=== PATIENT | male | born 1990 | race Caucasian/White ===

== ENCOUNTER 2023-09-15 15:24 | Emergency (ER) | payer BC, SELFPAY ==
[2023-09-15] VITALS (8 sets, daily range): BP systolic 118–159; BP diastolic 75–110
--- NOTE | 2023-09-15 15:53 | ED.GENMED ---
History of Present Illness
General
Chief Complaint: Musculo-Skeletal Complaint
Source: patient and family
Exam Limitations: none
Time Seen by Provider: 09/15/23 15:46
Travel History
Have you had any contact with someone who has COVID-19?: No
Do you have any symptoms of coronavirus? Fever > 100 degrees, chills, cough, shortness of breath, sore throat, loss of taste or smell, muscle aches, or headache?: No
History of Present Illness
History of Present Illness:
See MDM
Past History
Past History
ED Past Medical History: None
ED Past Surgical History: None
Social History
Tobacco: Non-smoker
Alcohol: None
Phy Exam
Physical Exam
Physical Exam:
See MDM
Course
Orders/Labs/Results
Orders:
Orders
09/15/23 15:47
HYDROmorphone [Dilaudid] 1 mg .ROUTE .STK-MED ONE
09/15/23 15:52
HYDROmorphone [Dilaudid] 1 mg IV NOW STA
Shoulder, Right, Trauma [CR Shoulder, Trauma - Right] Urgent
Comment:
Reason For Exam: fall, R shoulder injury
09/15/23 15:53
CT Head W/o Iv Contrast Urgent
Comment:
Reason For Exam: fall, head injury, seizure activity
09/15/23 16:05
HYDROmorphone [Dilaudid] 1 mg IV NOW STA
09/15/23 16:34
Complete Blood Count/With Diff Urgent
Comprehensive Metabolic Panel Urgent
09/15/23 16:49
Propofol [Diprivan] 20 ml .ROUTE .STK-MED
09/15/23 16:58
Propofol [Diprivan] 20 ml .ROUTE .STK-MED
09/15/23 17:11
Shoulder, Right 1 View [CR Shoulder - Right 1 View] Urgent
Comment:
Reason For Exam: post reduction
09/15/23 17:54
HYDROmorphone [Dilaudid] 1 mg IV NOW STA
Abnormal Lab Results
09/15/23
16:34
WBC 18.9 H 10^3/uL
(4.8-10.8)
Abs Immat Gran (auto) 0.1 H 10^3/uL
(0-0.05)
Absolute Neuts (auto) 16.9 H 10^3/uL
(1.4-6.5)
Absolute Lymphs (auto) 0.5 L 10^3/uL
(1.2-3.4)
Absolute Monos (auto) 1.3 H 10^3/uL
(0.1-0.6)
Immature Gran % 0.6 H %
(0-0.5)
Neutrophils % 89.5 H %
(42.2-75.2)
Lymphocytes % 2.6 L %
(20.5-51.1)
Creatinine 0.6 L mg/dL
(0.7-1.3)
Glucose 107 H mg/dl
(70-99)
Albumin 5.1 H g/dl
(3.5-5.0)
09/15/23 16:34
09/15/23 16:34
Vital Signs
Initial and Last Documented VS:
Initial Vital Signs
Temp Pulse Resp BP Pulse Ox
98.4 F 125 16 118/110 96
09/15/23 15:31 09/15/23 15:31 09/15/23 15:31 09/15/23 15:31 09/15/23 15:31
Last Documented Vital Signs
Temp Pulse Resp BP Pulse Ox
98.1 F 106 20 159/78 100
09/15/23 17:25 09/15/23 17:25 09/15/23 17:25 09/15/23 17:25 09/15/23 17:25
Procedures
Moderate Sedation
ASA Risk Score: Class II
Chart and allergies reviewed: Yes
Consent for anesthesia obtained: Yes
Time out completed (validating right patient & procedure): Yes
History of difficult intubation: No
Airway free of obstruction: Yes
Patient has a gag reflex: Yes
Patient is able to open mouth: Yes
Patient has no dentures: Yes
Patient has no loose teeth: Yes
Medication administered by Provider during Moderate Sedation: IV Propofol (mg)
Total dose administered: 400
Time drug administered: 16:55
Start Time: 16:55
Stop Time: 17:10
Joint/Fracture Reduction
Right Anterior Proximal Shoulder:
Indication for procedure:: Right anterior shoulder dislocation
Procedure completed by: Jose Galvez DO
Consent form signed: Yes
Joint reduced: with anesthesia sedation
Injury was: closed
Further treatement: needs further treatment
Post reduction exam: stable
Capillary Refill: normal
Peripheral Pulses: radial (right): 2+
MDM/Problems Addressed
Differential Diagnosis Includes:
HPI and MDM Narrative:
33-year-old male presenting for evaluation of right shoulder injury and possible seizure. Mother at bedside states they were talking on the phone and he stopped midsentence and she heard ruffling. She left him and his . She went to his house
immediately and patient was walking around and appeared confused. He has concern for right shoulder dislocation and head injury. Mother is concerned that patient had another seizure. He had a seizure 2 years ago believed to be related to
tramadol. All of his workup from [place] [facility] was negative and he has been seizure-free for 2 years. Patient denies biting his tongue or urinating on himself. It is not certain whether or not patient had another seizure or not
I was called to the patient's room for pain control. Patient has clinical evidence of right shoulder dislocation. Will give Dilaudid and obtain x-ray
Physical exam
General: Uncomfortable
HEENT: protecting airway. Abrasion to left forehead. No tongue bite noted
Neck: appears supple
CV: No evidence of cyanosis
Resp: No accessory muscle use
Abd: Non-distended
Extremities: Step-off to right shoulder. Distal extremity neurovascular intact
Neuro: alert. No focal deficits
Psych: Anxious
Skin: Intact
Problems Addressed including Acute and Chronic Conditions affecting care:
1. Seizure-like activity
Acuity: acute
Prognosis: stable
Details: This was unwitnessed. Will obtain CT head
2. Right shoulder dislocation
Acuity: acute
Prognosis: unstable
Details: Will give Dilaudid and obtain x-ray
Updates
X-ray confirms anterior shoulder dislocation. No fracture noted. After consent was obtained, the shoulder was reduced without complication. Patient did forewarned me that he requires multiple doses of propofol. Patient did require a total of 400
mg of propofol that was given 100 mg increments. Patient woke up only minutes later after he was sedated.
I had a long discussion with patient and mother. Since the episode was unwitnessed, I cannot 100% confirm this was a seizure. I discussed that he cannot drive a car until cleared by neurology. Patient and mother gave verbal understanding of this
Differential Diagnosis (but not limited to): Seizure, shoulder dislocation
Testing considered: UDS
Drug therapy (if applicable): OTC meds, please see d/c instruction regarding Rx drugs
Amount and/or Complexity of Data Reviewed
Clinical info obtained from: Patient
External data reviewed: N/A
Labs I independently reviewed (but not limited to): Leukocytosis, likely reactive
Radiology: X-ray independently reviewed: Anterior shoulder dislocation
Pulse Ox: not hypoxic
EKG independently reviewed: N/A
Force Dispatcher: Sinus rhythm
Critical Care: N/A
Risk of Complication:
Social Determinants of health: Good social support
Discussed with other providers: N/A
Escalation of Care includes Admit/Obs: After being observed in the Emergency Department, pt stable for discharge.
Occasional wrong word or 'sound a like' substitutions may have occurred due to the inherent limitations of voice recognition software. Read the chart carefully and recognize, using context, where substitutions have occurred.
*Critical Care Note
Total Time (30-74mins, 75-104mins- exclusive of procedures): Not Applicable
ED Attending Note
-
Portions of this chart may have been created with voice recognition software.� Occasional wrong word or��sound alike� substitutions may have occurred due to the inherent limitations of voice recognition software.
Discharge Plan
Departure
Patient Disposition: Home (Routine Discharge)
Date of Disposition: 09/15/23
Time of Disposition: 19:09
Patient with high blood pressure during this ER visit?: Yes
Discharge Problem:
Dislocation of right shoulder joint, Seizure-like activity
Instructions: Shoulder Dislocation (DC), BLOOD PRESSURE
Prescriptions:
New
oxycodone 5 mg tablet
5 mg PO Q8H PRN (Reason: Pain) Qty: 14 0RF
Referrals:
Luciano Guillen DO [Family Provider] -
Activity Restrictions/Additional Instructions:
As we discussed, the persistent pain is concerning for rotator cuff injury. Please call your orthopedist tomorrow morning. Please continue to use the shoulder immobilizer.
Again, as we discussed, do not drive until cleared by neurology. There is a possibility that this was a seizure. However, it was unwitnessed. Please discuss this with the neurologist to discuss whether or not to start seizure medicines and whether
or not you can drive.
Please return for any worsening symptoms.
You may return at any time if you have further concerns.
Interventions
Interventions:
*Risk Screen - Suicide Last Done: 09/15/23 15:31
*General Assessment Last Done: 09/15/23 15:31
*Neglect/Abuse Screening Last Done: 09/15/23 15:31
ED- Fall Risk Assessment Last Done: 09/15/23 17:33
*ED COVID-19 Vaccine History Last Done: 09/15/23 15:31
ED- Cardiac Assessment Last Done: 09/15/23 17:33
ED-Musculoskeletal Assessment Last Done: 09/15/23 17:40
ED- Neurological Assessment Last Done: 09/15/23 17:40
ED- Pulmonary Assessment Last Done: 09/15/23 17:40
Discharge Date and Time
Print Language: GEORGIAN
[2023-09-15] MEDS: DILAUDID 1 MG IV ×3 (15:55→17:58)
[2023-09-15 16:49] LABS: % Basophils 0.4 % (0-2); % Eosinophils 0.2 % (0-6); % Immature Granulocytes 0.6 % (0-0.5); % Lymphocytes 2.6 % (20.5-51.1); % Monocytes 6.7 % (1.7-9.3); % Neutrophils 89.5 % (42.2-75.2); Absolute Basophils 0.1 10^3/uL (0-0.2); Absolute Immature Granulocytes 0.1 10^3/uL (0-0.05); Absolute Lymphocytes 0.5 10^3/uL (1.2-3.4); Absolute Monocytes 1.3 10^3/uL (0.1-0.6); Absolute Neutrophils 16.9 10^3/uL (1.4-6.5); Hematocrit 40.2 % (39.0-52.0); Hemoglobin 14.8 g/dL (13.0-18.0); Mean Corp Hgb Conc. 36.8 g/dL (33.0-37.0); Mean Corpuscular Hgb 30.8 pg (27.0-31.0); Mean Corpuscular Volume 83.8 fL (80.0-94.0); Mean Platelet Volume 9.7 fL (7.4-10.4); Nucleated Red Blood Cells % 0 % (-); Platelet Count 374 10^3/uL (130-400); Red Cell Dist. Width 12.6 % (11.5-14.5); White Blood Cell Count 18.9 10^3/uL (4.8-10.8)
[2023-09-15 16:58] LABS: ALT (SGPT) 23 U/L (0-50); AST (SGOT) 26 U/L (17-59); Albumin 5.1 g/dl (3.5-5.0); Alkaline Phosphatase 88 U/L (38-126); Blood Urea Nitrogen 12 mg/dl (9-20); Calcium 9.9 mg/dl (8.4-10.2); Carbon Dioxide 23 mmol/L (22-30); Chloride 100 mmol/L (98-107); Glucose 107 mg/dl (70-99); Potassium 4.6 mmol/L (3.5-5.1); Sodium 135 mmol/L (135-145); Total Bilirubin 0.5 mg/dl (0.2-1.3); Total Protein 7.5 g/dl (6.3-8.2); eGFR > 60.00
[2023-09-15] MEDS: PERCOCET 5/325 1 TABLET PO (19:14)
== END 2023-09-15 19:46 | disposition home or self-care (01) ==
LOC: EMR 15:24
PROVIDERS: EMERGENCY PHYSICIAN Student in an Organized Health Care Education/Training Program; FAMILY PHYSICIAN Family Medicine
DX: S43.004A Unspecified dislocation of right shoulder joint, initial encounter (principal); S09.90XA Unspecified injury of head, initial encounter; R56.9 Unspecified convulsions; S00.81XA Abrasion of other part of head, initial encounter; W19.XXXA Unspecified fall, initial encounter; R03.0 Elevated blood-pressure reading, without diagnosis of hypertension
CPT/HCPCS: 99285; 23650; 96374; 99152; 96376; 70450; 73020; 73030; 80053; 85025

== ENCOUNTER 2024-03-05 18:48 | Inpatient (IN) | payer BC, SELFPAY ==
[2024-03-05 16:37] VITALS: BP 170/98
[2024-03-05 17:03] LABS: % Basophils 0.3 % (0-2); % Eosinophils 0.4 % (0-6); % Immature Granulocytes 0.3 % (0-0.5); % Lymphocytes 10.2 % (20.5-51.1); % Monocytes 9.7 % (1.7-9.3); % Neutrophils 79.1 % (42.2-75.2); Absolute Eosinophils 0.1 10^3/uL (0-0.7); Absolute Lymphocytes 1.2 10^3/uL (1.2-3.4); Absolute Monocytes 1.2 10^3/uL (0.1-0.6); Absolute Neutrophils 9.5 10^3/uL (1.4-6.5); Hemoglobin 14.9 g/dL (13.0-18.0); Mean Corp Hgb Conc. 36.3 g/dL (33.0-37.0); Mean Corpuscular Hgb 30.2 pg (27.0-31.0); Mean Platelet Volume 9.7 fL (7.4-10.4); Nucleated Red Blood Cells % 0 % (-); Platelet Count 331 10^3/uL (130-400); Red Blood Cell Count 4.94 10^6/uL (4.70-6.10); Red Cell Dist. Width 12.7 % (11.5-14.5)
[2024-03-05 17:12] VITALS: BP 142/74
[2024-03-05 17:22] LABS: ALT (SGPT) 49 U/L (0-50); AST (SGOT) 34 U/L (17-59); Albumin 5.2 g/dl (3.5-5.0); Alkaline Phosphatase 111 U/L (38-126); Blood Urea Nitrogen 22 mg/dl (9-20); Calcium 9.8 mg/dl (8.4-10.2); Carbon Dioxide 26 mmol/L (22-30); Chloride 99 mmol/L (98-107); Glucose 110 mg/dl (70-99); Potassium 4.5 mmol/L (3.5-5.1); Sodium 140 mmol/L (135-145); Total Bilirubin 0.5 mg/dl (0.2-1.3); Total Protein 7.4 g/dl (6.3-8.2); eGFR > 60.00
--- NOTE | 2024-03-05 17:33 | ED.CVA ---
History of Present Illness
General
Chief Complaint: CVA/TIA Symptoms
Source: patient and family
Exam Limitations: none
Time Seen by Provider: 03/05/24 16:56
Onset of Stroke Symptoms
Onset of symptoms known: No
Time pt last seen normal is known: No
History of Present Illness
History of Present Illness:
34-year-old male apparently took a walk with a neighbor yesterday. He does not recall the event. Loss of short-term memory. Ongoing slurred speech since yesterday. He possibly had a seizure yesterday. Seizures are not grand mal. They are more
like drop attack. He is on antiseizure medication. No new medications otherwise. Still feels slightly slurred speech still feels like his short-term memory is off
Past History
Past History
ED Past Medical History: GERD, HTN, Seizures and Other (Anxiety/Lyme disease)
ED Past Surgical History: None and Orthopedic
Social History
Tobacco: Non-smoker
Alcohol: None
Phy Exam
Physical Exam
Physical Exam:
GENERAL: Alert and oriented in no apparent distress
EYE: Orbits normal.
NECK: Supple, no significant adenopathy.
ENT: Pharynx without erythema
CARDIAC: Regular rate and rhythm without any obvious murmurs.
LUNGS: Clear breath sounds,normal
ABDOMEN: Soft, without focal tenderness or distention
NEUROLOGICAL: Alert and oriented , grossly non-focal. Mild slurred speech at times. Mildly wide-based gait. Nonfocal
SKIN: Warm and dry, abrasions to both knees
MUSCULOSKELETAL: No edema,no deformity.Good color
PSYCH: Normal and appropriate interaction.
Course
Orders/Labs/Results
Orders:
Orders
03/05/24 16:42
CT Head W/o Iv Contrast Urgent
Comment:
Reason For Exam: new confusion, slurred speech, seizure.
03/05/24 16:47
Complete Blood Count/With Diff Urgent
Comprehensive Metabolic Panel Urgent
Creatine Phosphokinase Urgent
Comment: ADDON
Lipase Urgent
Comment: ADD ON
TSH Reflex To Free T4 Urgent
Comment: ADDON
03/05/24 17:23
Add On- LAB Urgent
Tests Added?: lipase
Electrocardiogram (*1) Stat
Reason for Study: Other
Other Reason for Exam: neuro symptoms
Cardiac Monitoring- Treatment ONCE
EKG- Treatment ONCE
Pantoprazole [Protonix IV] 40 mg IV NOW STA
03/05/24 17:53
Urine Drug Abuse Screen Urgent
03/05/24 18:18
NEUROLOGY CONSULT Routine
Consulting Provider: Diego Foster
Was physician already notified: Yes
Reason for consult: Hx of seizures with retrograde amnesia
03/05/24 18:19
Lorazepam [Ativan] 1 mg IV Q8HPRN PRN
Lorazepam [Ativan] 2 mg IV Q4HPRN PRN
03/05/24 18:21
CT Cervical Spine W/o Iv Contr Stat
Comment:
Reason For Exam: fall with seizures
03/05/24 18:23
Admit/Transfer Patient As Directed
Co-Sign Provider:
Level of Care: Inpatient admission
Assign to:: Telemetry
Physician / Group: Hospitalist
Diagnosis: breakthrough seizures
Reason for Telemetry: Arrhythmia
Date to Stop Telemetry: 03/08/24
Time to Stop Telemetry: 11:00
Reason for Hospitalization: breakthrough seizures
Expected length of stay greater than two midnights?: Yes
ELOS- Estimated Length of Stay in days: 2
I certify the patient meets the requirements for IP care: Yes
PRN Pain Medication Management As Directed
May give lesser potent ordered pain med per pt: Yes
preference::
Protocol:: Medication orders for pain may be administered in a
manner that supports deferring to patient preference
when the pt is:
- Requesting an ordered lesser potent pain medication.
Least to most potent pain medications are defined
as: acetaminophen < NSAID < tramadol < opioids
(morphine, oxycodone, hydromorphone).
- Requesting a lesser dose of the same medication IF
ORDERED.
- Requesting a less intrusive route of administration
if both routes are prescribed by the provider (PO <
IV).
03/05/24 18:24
Code Status As Directed
Resuscitation Status: Full Code
03/05/24 18:34
Add On- LAB Urgent
Tests Added?: lacosamide level
03/05/24 18:38
Add On- LAB Routine
Tests Added?: TSH with reflex FT4, CPK
03/05/24 18:40
Urine Drug Abuse Screen Stat
03/05/24 20:00
Lacosamide [Vimpat] 100 mg PO BID
Lacosamide [Vimpat] 200 mg PO BID
Levetiracetam Injectable [Keppra] 500 mg IV Q12
03/05/24 22:00
Doxepin [Sinequan] 25 mg PO HS
Gabapentin [Neurontin] 600 mg PO HS
03/08/24 11:00
DC Protocol for Telemetry ONCE
Abnormal Lab Results
03/05/24
16:47
WBC 12.0 H 10^3/uL
(4.8-10.8)
Absolute Neuts (auto) 9.5 H 10^3/uL
(1.4-6.5)
Absolute Monos (auto) 1.2 H 10^3/uL
(0.1-0.6)
Neutrophils % 79.1 H %
(42.2-75.2)
Lymphocytes % 10.2 L %
(20.5-51.1)
Monocytes % 9.7 H %
(1.7-9.3)
BUN 22 H mg/dl
(9-20)
Glucose 110 H mg/dl
(70-99)
Albumin 5.2 H g/dl
(3.5-5.0)
03/05/24 16:47
03/05/24 16:47
Vital Signs
Initial and Last Documented VS:
Initial Vital Signs
Temp Pulse Resp BP Pulse Ox
100.3 F 115 22 170/98 96
03/05/24 16:37 03/05/24 16:37 03/05/24 16:37 03/05/24 16:37 03/05/24 16:37
Last Documented Vital Signs
Temp Pulse Resp BP Pulse Ox
98.0 F 100 20 142/74 98
03/05/24 18:00 03/05/24 18:00 03/05/24 17:45 03/05/24 17:34 03/05/24 17:34
*Radiology
Radiology exam reviewed: radiology read reviewed (Negative)
*Pulse Oximetry
Patient hypoxic: no
*Critical Care Note
Total Time (30-74mins, 75-104mins- exclusive of procedures): Not Applicable
Update Note
Update Note:
Patient with ongoing confusion slurred speech wide-based gait. Questionable seizures. Warrants further inpatient management
Discussed with neurology. Also discussed with epilepsy fellow at [place]. Our neurologist recommended Keppra 500 twice daily. The neurology fellow was good with this. Negative MRI in September of this year.
ED Attending Note
-
Portions of this chart may have been created with voice recognition software.� Occasional wrong word or��sound alike� substitutions may have occurred due to the inherent limitations of voice recognition software.
Discharge Plan
Departure
Patient Disposition: Admit
Date of Disposition: 03/05/24
Time of Disposition: 17:34
Presentation/result/management discussed w/ accepting MD/DO: Hospitalist
Discharge Problem:
Confusion/change in mental status, History of seizures
Interventions
Interventions:
*Risk Screen - Suicide Last Done: 03/05/24 16:37
*General Assessment Last Done: 03/05/24 16:37
*Neglect/Abuse Screening Last Done: 03/05/24 16:37
ED- Fall Risk Assessment Last Done: 03/05/24 18:28
*ED COVID-19 Vaccine History Last Done: 03/05/24 16:37
ED- Pulmonary Assessment Last Done: 03/05/24 17:27
ED- Neurological Assessment Last Done: 03/05/24 17:27
ED- Cardiac Assessment Last Done: 03/05/24 17:27
ED Swallowing Screen Last Done: 03/05/24 17:26
[2024-03-05 17:34] VITALS: BP 142/74
[2024-03-05 17:35] VITALS: BMI 29.5
[2024-03-05] MEDS: PROTONIX IV 40 MG IV (17:43)
[2024-03-05 18:13] LABS: Lipase 96 U/L (23-300)
--- NOTE | 2024-03-05 18:41 | HPS.HSE ---
Family Physician
-
Family Physician: Luciano Guillen, DO
Chief Complaint
-
retrograde amnesia
History of Present Illness
34yo M with anxiety, GERD, HTN, Hx of seizures, shoulder Fx, migraine, ADHD came after he sustained episode of retrograde amnesia on the day prior. He went for a walk with his neighbor friend and during walk he had a witnessed fall with presceding
slurred speech. He does not remember this episode and regained memory in his house later when his neighbor was cleaning his scratched R knee. Then he was doing some house work whole night and later decided to come to ED since he was still feeling
confused. Patient had similar episodes before that his doctor contributed to seizures. Followed by in [facility]. ED provided contacted neurology Fellow on-call who is agreeable with [facility]
Patient did not miss his Lacosamide. He uses medical marijuana daily and recently, after 2 months break, restarted Trizepatide for weight loss on maximum dose - had second injection couple of days ago. This caused GI symptoms
Medical History
Past Medical History
Past Medical History: Reports Other
Additional Past Medical History:
see HPI
Past Surgical History: Reports Other
Additional Past Surgical History:
See HPI
Social History
Tobacco: Non-smoker
Alcohol: None
Drug: Marijuana
Family History
Family History: Not pertinent
Allergies / Home Medications
Allergies reflects when Allergies were last updated in [facility].
Home Medications with original date entered in [facility]
Allergy/Medication List:
Allergies
Allergy/AdvReac Type Severity Reaction Status Date / Time
tramadol Allergy Intermediate Unknown Verified 06/24/22 09:29
cefazolin [From [facility]] Allergy Mild Hives Verified 06/24/22 09:29
Home Medications
alprazolam 1 mg tablet 1 mg PO TIDPRN PRN anxiety 03/05/24
cholecalciferol (vitamin D3) 25 mcg (1,000 unit) tablet (Vitamin D3) 25 mcg PO DAILY 03/05/24
citalopram 40 mg tablet 40 mg PO DAILY 03/05/24
dextroamphetamine-amphetamine 10 mg tablet (Adderall) 10 mg PO TIDPRN PRN adhd 03/05/24
doxepin 25 mg capsule 25 mg PO HS 03/05/24
gabapentin 300 mg capsule 600 mg PO HS 03/05/24
lacosamide 200 mg tablet 200 mg PO BID 03/05/24
lacosamide 50 mg tablet 100 mg PO BID 03/05/24
lisinopril 20 mg-hydrochlorothiazide 25 mg tablet 1 tab PO DAILY 03/05/24
pantoprazole 40 mg tablet,delayed release 40 mg PO DAILY 03/05/24
rosuvastatin 20 mg tablet 20 mg PO DAILY 03/05/24
tirzepatide (weight loss) 10 mg/0.5 mL subcutaneous pen injector (Zepbound) 10 mg SC TU 03/05/24
Review of Systems
-
History Source: Patient
A 12 point ROS was completed and negative except as noted: Yes
Psych: Reports Anxiety
Physical Exam
Vital Signs
Vital Signs
Temp Pulse Resp BP Pulse Ox
98.0 F 100 20 142/74 98
03/05/24 18:00 03/05/24 18:00 03/05/24 17:45 03/05/24 17:34 03/05/24 17:34
Physical Exam
General: Well Nourished and No Apparent Distress
HEENT: NormoCephalic, Anicteric and Moist mucous membranes
Respiratory: Clear; No Wheezes, Rales or Rhonchi
Cardiac: S1/S2, Regular Rhythm and Tachycardia
GI: Soft, Non Tender and Non Distended
Rectal: Brown
Musculoskeletal: No Clubbing, No Cyanosis and No Edema
Skin: Warm
Neuro: Awake, Alert, Oriented and AO x 3
Psych: Calm
Laboratory Results
-
03/05/24 16:47
03/05/24 16:47
Laboratory Results
Total Bilirubin 0.5 mg/dl (0.2-1.3) 03/05/24 16:47
AST 34 U/L (17-59) 03/05/24 16:47
ALT 49 U/L (0-50) 03/05/24 16:47
Alkaline Phosphatase 111 U/L (38-126) 03/05/24 16:47
Lipase 96 U/L (23-300) 03/05/24 16:47
Data Reviewed
-
Lab Data: Labs Reviewed by me
Impression/Plan
-
A/P
#Possible Focal seizures with breakthrough seizures with postictal state
Cont Lacosamide, check levels
Add Keppra as per initial Neuro recommendations
Neurology consult
Seizure precautions
Ativan PRN
EEG
MRI brain w/wo contrast
CT cervical spine STAT
Check TSH and CPK
UDS
Head CT unremarkable
#Minimal leukocytosis
no meningeal symptoms
most likely 2/2 seizures
monitor
#sinus tachycardia
telemetry
#Anxiety
#GERD
#Essential HTN
#Neuropathy
#ADHD
hold Adderall 2/2 tachycardia and anxiety
cont home meds
#R knee abrasions
non-infected looking
clean with saline as needed
DVT ppx SCDs
Full code
I have spent at least 76min reviewing chart, test results, communication with consultants and direct patient care
[2024-03-05 19:07] VITALS: BP 133/63
[2024-03-05 19:09] LABS: Creatine Phosphokinase 230 U/L (55-170)
[2024-03-05 19:39] LABS: TSH Reflex To Free T4 0.54 uIU/ml (0.47-4.68)
[2024-03-05 20:09] VITALS: BP 158/85; BMI 29.3
--- NOTE | 2024-03-05 20:09 | PTCARENOTE ---
Pt arrived from ED via stretcher and ambulated to bed w/ mother at bedside. Pt is AAOx3, VSS, and complains of pain in R knee from a fall prior to admission, upper abdominal pain, and headache. RN given Tylenol. Pt is oriented to room, resting
comfortably w/ call henson and seizure precautions in place.
[2024-03-05] MEDS: ZOFRAN 4 MG IV (20:51)
[2024-03-05] MEDS: TYLENOL 650 MG PO (20:51)
[2024-03-05] MEDS: VIMPAT 200 MG PO (21:26)
[2024-03-05] MEDS: NEURONTIN 600 MG PO (21:26)
[2024-03-05] MEDS: KEPPRA 500 MG IV (21:26)
[2024-03-05] MEDS: SINEQUAN 25 MG PO (21:26)
[2024-03-05] MEDS: VIMPAT 100 MG PO (21:28)
[2024-03-05 23:21] VITALS: BP 129/71
[2024-03-05] MEDS: OFIRMEV 100 IV (23:52)
[2024-03-06] MEDS: MYLICON 80 MG PO (03:18)
[2024-03-06 03:28] VITALS: BP 158/84
[2024-03-06 07:13] LABS: Amphetamines Negative (Negative); Barbiturates Negative (Negative); Benzodiazepines Positive (Negative); Buprenorphine Negative (Negative); Cocaine Positive (Negative); Marijuana Positive (Negative); Methadone Negative (Negative); Methamphetamines Negative (Negative); Opiates Negative (Negative); Phencyclidine Negative (Negative); Tricyclic Antidepressants Negative (Negative)
[2024-03-06 07:33] LABS: Fentanyl, Urine Negative (Negative)
[2024-03-06 07:40] VITALS: BP 156/88
[2024-03-06] MEDS: VIMPAT 200 MG PO (08:56)
[2024-03-06] MEDS: VIMPAT 100 MG PO (08:56)
[2024-03-06] MEDS: CELEXA 40 MG PO (08:56)
[2024-03-06] MEDS: CRESTOR 20 MG PO (08:56)
[2024-03-06] MEDS: ZESTRIL 20 MG PO (08:56)
[2024-03-06] MEDS: PROTONIX 40 MG PO (08:56)
[2024-03-06] MEDS: ORETIC 25 MG PO (08:56)
[2024-03-06] MEDS: KEPPRA 500 MG IV (08:57)
[2024-03-06 09:05] LABS: ALT (SGPT) 43 U/L (0-50); AST (SGOT) 29 U/L (17-59); Alkaline Phosphatase 113 U/L (38-126); Blood Urea Nitrogen 17 mg/dl (9-20); Calcium 9.4 mg/dl (8.4-10.2); Carbon Dioxide 27 mmol/L (22-30); Chloride 98 mmol/L (98-107); Estimated Creatinine Clearance > 125 ml/min; Glucose 101 mg/dl (70-99); Magnesium 2.2 mg/dl (1.6-2.3); Potassium 4.3 mmol/L (3.5-5.1); Sodium 141 mmol/L (135-145); Total Bilirubin 0.7 mg/dl (0.2-1.3); Total Protein 7.3 g/dl (6.3-8.2); eGFR > 60.00
[2024-03-06] MEDS: ZOFRAN 4 MG IV (09:15)
[2024-03-06] MEDS: OMNIPAQUE 50 ML PO (10:39)
[2024-03-06 11:10] VITALS: BP 180/90
--- NOTE | 2024-03-06 11:18 | W.PN.HOSP.TC ---
Today's Communication/Plan
-
EEG
CT abd
NEuro F/U
possible d/c afterwards
Assessment / Plan
Assessment / Plan
34yo M with anxiety, GERD, HTN, Hx of seizures, shoulder Fx, migraine, ADHD came after he sustained episode of retrograde amnesia on the day prior. He went for a walk with his neighbor friend and during walk he had a witnessed fall with presceding
slurred speech. He does not remember this episode and regained memory in his house later. Episode is similar to his previous seizure episodes. MRI brain WNL
Continued to have epigastric dyscomfort, most likely 2/2 recent GLP-1 agonist.
A/P
#Possible Focal seizures with breakthrough seizures with postictal state
Cont Lacosamide, check levels
Neurology consult: keppra
Seizure precautions
Ativan PRN
EEG
MRI brain w/wo contrast WNL
CT cervical spine without Fx. Slight reversal of lordotic curvature seen.
TSH WNL
CPK minimally elevated
UDS positive for cocaine, benzos and metamphetamins. Watch for withdrawal
Head CT unremarkable
#Abdominal epigastric dyscomfort
CT abd
Lipase WNL
Zofran
#Minimal leukocytosis
no meningeal symptoms
most likely 2/2 seizures
monitor
#sinus tachycardia
most liekly 2/2 Adderall - holding
No additional tachycardia on telemetry
#Anxiety
#GERD
#Essential HTN
#Neuropathy
#ADHD
hold Adderall 2/2 tachycardia and anxiety
cont home meds
#Splint in R hand
compress to soften the skin
#R knee abrasions
non-infected looking
clean with saline as needed
ROM intact, no concern for Fx, no pain reported
DVT ppx SCDs
Full code
I have spent at least 36min reviewing chart, test results, communication with consultants and direct patient care
Anticipated Discharge: Within 24 hours
Subjective/Interval History
-
Date of Service: March 06, 2024
Objective Data
-
Labs:
Laboratory Results
03/06/24 03/06/24
07:59 11:12
WBC Cancelled Pending
Hgb Cancelled Pending
Hct Cancelled Pending
Plt Count Cancelled Pending
Sodium 141
Potassium 4.3
Chloride 98
Carbon Dioxide 27
BUN 17
Creatinine 0.6 L
Glucose 101 H
Calcium 9.4
Total Bilirubin 0.7
AST 29
ALT 43
Alkaline Phosphatase 113
Vital Signs:
Vital Signs
Temp Pulse Resp BP Pulse Ox
98.1 F 65 18 180/90 96
03/06/24 11:10 03/06/24 11:10 03/06/24 11:10 03/06/24 11:10 03/06/24 11:10
I&O
03/05/24 03/06/24 03/07/24
06:59 06:59 06:59
Intake Total 960 / 960
Balance 960 / 960
Review of Systems
-
History Source: Patient
All other systems: Reviewed and negative
Abdomen/GI: Reports Abdominal Pain
Psych: Reports Anxious
Physical Exam
-
General: Well Developed, Well Nourished and No Apparent Distress
HEENT: Normocephalic
Respiratory: Clear to Auscultation
Cardiac: Regular Rhythm; Negative Murmur
GI: Soft, Nontender and Nondistended
Genito-urinary: No Costovertebral Tender
Musculoskeletal: No Clubbing, No Cyanosis and No Edema
Skin: Warm
Neuro: Awake, Alert, Oriented, AO x 3, No Motor Deficits and No Sensory Deficits
Psych: Calm
[2024-03-06 11:41] LABS: % Basophils 0.4 % (0-2); % Eosinophils 0.4 % (0-6); % Immature Granulocytes 0.4 % (0-0.5); % Lymphocytes 12.7 % (20.5-51.1); % Monocytes 10.7 % (1.7-9.3); % Neutrophils 75.4 % (42.2-75.2); Absolute Lymphocytes 0.9 10^3/uL (1.2-3.4); Absolute Monocytes 0.8 10^3/uL (0.1-0.6); Absolute Neutrophils 5.5 10^3/uL (1.4-6.5); Hematocrit 43.4 % (39.0-52.0); Hemoglobin 15.8 g/dL (13.0-18.0); Mean Corp Hgb Conc. 36.4 g/dL (33.0-37.0); Mean Corpuscular Hgb 31.9 pg (27.0-31.0); Mean Corpuscular Volume 87.5 fL (80.0-94.0); Mean Platelet Volume 9.9 fL (7.4-10.4); Nucleated Red Blood Cells % 0 % (-); Platelet Count 256 10^3/uL (130-400); Red Blood Cell Count 4.96 10^6/uL (4.70-6.10); Red Cell Dist. Width 12.8 % (11.5-14.5); White Blood Cell Count 7.3 10^3/uL (4.8-10.8)
--- NOTE | 2024-03-06 12:40 | EEG.RPT ---
Electroencephalogram Report
Recording
Date of EE03/06/24
Length of EEG recordin mins
Done with Video Recording: Yes
Patient Status: Inpatient
Recording Conditions: Awake, Drowsy and Asleep
Hyperventilation Performed: Yes
Photic Stimulation Performed: Yes
Report
METHODS
A 21 channel digitized electroencephalogram was performed at [facility]. The 10/20 international system of electrode placement was used. In addition to EEG, the patient was monitored for EKG. The duration of the recording was 32 minutes.
BACKGROUND
During the awake state, with the eyes closed, the background consisted of a normal amplitude, 11 Hertz posterior reactive rhythm that attenuated appropriately with eye opening. Beta activity was distributed diffusely with an anterior predominance.
There was a normal anterior-posterior voltage gradient. With eye opening the background activity changed to a low voltage mixture of alpha, beta, and occasional theta range frequencies. There were no significant asymmetries of background activity
noted.
SLEEP
Stage II sleep was obtained and consisted of symmetrical sleep spindles and vertex sharp waves.
HYPERVENTILATION
Hyperventilation resulted in diffuse slowing of the background activity without appearance of abnormal activity.
PHOTIC STIMULATION
Photic stimulation using a step-hooker increase in photic frequency varying from 1-31 Hertz resulted in no driving responses but no appearance of abnormal activity.
ABNORMAL EEG ACTIVITY
None
CLINICAL EVENTS
None
INTERPRETATION AND CLINICAL CORRELATION
This EEG is normal during the awake and sleep states as well as during the activation procedures of hyperventilation and photic stimulation. No seizures were noted during the recording. A normal EEG, in itself, does not rule out a diagnosis of
epilepsy. If clinical suspicion for seizure persists, a sleep-deprived and/or prolonged recording may be warranted.
[2024-03-06] MEDS: COMPAZINE 10 MG IV (13:45)
--- NOTE | 2024-03-06 13:47 | W.PN.UPDATE ---
Update Note
Progress Note Update
Nausea/Vomiting, normal lipase and no significant abnormalities on CT - suspect gastroparesis 2/2 GLP1 agonist high dose.
Use antiemetics, advise to decrease dose
[2024-03-06] MEDS: ATIVAN 1 MG IV (13:52)
--- NOTE | 2024-03-06 13:53 | CON.NEURO4 ---
Consultation - Neurology 4
-
CONSULTING PHYSICIAN: Diego Foster MD Neurology
REFERRING PHYSICIAN: Hospitalist
DICTATED BY: Diego Foster MD
DATE/TIME OF REQUEST: March 05, 2024
DATE/TIME OF CONSULTATION: March 06, 2024
Reason for Consultation: Seizures
History of Present Illness:
This is a 34 year old right) handed (male who has presented to the hospital with (chief complaint) of seizures over the last 5 to 10 years. And anxiety disorder, GERD, HTN, shoulder Fx, migraine, ADHD came after he sustained episode of
retrograde amnesia on the day prior. He went for a walk with his neighbor and during walk he fell and was confused with slurred speech. He does not remember this episode and regained memory in his house later when his neighbor was cleaning his
scratched R knee. Then he was doing house work the night and later decided to come to ED since he was still feeling confused. Patient had similar episodes before that his doctor contributed to seizures.
He has been having sleepwalking episodes since his teens and early 30s he has had multiple falls resulting in shoulder injury. He was seen by neurology and had multiple EEGs. Was reportedly normal .
After his last shoulder injury he was referred to in [facility]. He was placed on lacosamide 300 mg twice a day
He had no further spells during the ER visit and hospitalizations. He was started on Keppra 500 mg twice a day
Patient did not miss his Lacosamide. He uses medical marijuana daily and recently, after 2 months break.
He restarted Trizepatide for weight loss on maximum dose - had second injection couple of days ago. This caused GI gastroparesis
Past Medical History: As above
Surgical History: Orthopedic procedures
Family History: Noncontributory
Social History: Lives at home
Allergies: Tramadol Cefazolin
Home Medications: See addendum
Review of Symptoms: Abdominal pain+ after starting Zepbound
Patient denies any fever, headache, chest pain, shortness of breath, symptoms.
�Per the HPI.�All systems are reviewed negative except above.
�-
Vital Signs:
The patient has a
Temp Pulse Resp BP Pulse Ox
36.7 C 65 18 180/90 96
Physical Exam:
The patient is afebrile, heart sounds S1 and S2 are (regular / irregular), and chest is clear to auscultation bilaterally. Limited range of movement of the shoulder
Neurologic Examination:
The patient is awake, alert and oriented x 3. (He is able to follow commands and answer questions appropriately. There is no aphasia or dysarthria. On cranial nerve assessment, pupils are 3 mm bilateral, round and reactive to light and
accommodation. Visual gorman are full. Extraocular movements are intact. Facial sensations are intact and bilaterally symmetrical, there is no facial asymmetry. Hearing is intact bilaterally to normal conversation volume. Tongue palate and uvula
are midline. Sternocleidomastoid strengths are full bilaterally. Motor strengths are 5/5 bilateral upper and lower extremities on medical research [place] scale. There is no drift or involuntary movement noted. Deep tendon reflexes are 2+ bilateral
upper and lower extremities and Babinski is absent bilaterally. Sensations of pain, touch, temperature and vibration are intact and bilaterally symmetrical. There was no extinction noted on double simultaneous stimulation. Coordination is intact by
finger to nose bilaterally. Romberg's unsteady. Gait independent
Lab Results: See addendum
Neuro Imaging: CT head/MRI head within normal limits
Impression:
(Mr.MARK GASTON is a 34 year old M who has presented to the hospital with (symptoms/chief complaint). 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
Recommendations:
1. Keppra 500 twice a day
2. Vimpat 300 twice a day
3. [address] not drive
Discussed patient care with: Hospitalist and patient's family
Allergies
-
Allergies
Allergy/AdvReac Type Severity Reaction Status Date / Time
tramadol Allergy Intermediate Unknown Verified 06/24/22 09:29
cefazolin [From Ancef] Allergy Mild Hives Verified 06/24/22 09:29
Medications
-
Active Medications
Generic Name Dose Route Start Last Admin
Trade Name Freq PRN Reason Stop Dose Admin
Acetaminophen 650 mg 03/05/24 19:54 03/05/24 20:51
Acetaminophen 325 Mg Tablet PO 04/02/24 19:53 650 mg
Q4HPRN PRN Administration
mild pain/SCHREIBER/temp> 100.4F
Bisacodyl 10 mg 03/05/24 19:54
Bisacodyl 10 Mg Rectal Suppository RECTAL 04/02/24 19:53
[id number] PRN
constipation
Citalopram Hydrobromide 40 mg 03/06/24 08:00 03/06/24 08:56
Citalopram 40 Mg Tablet PO 04/03/24 07:59 40 mg
DAILY ANA Administration
Doxepin HCl 25 mg 03/05/24 22:00 03/05/24 21:26
Doxepin 25 Mg Capsule PO 04/02/24 21:59 25 mg
HS ANA Administration
Gabapentin 600 mg 03/05/24 22:00 03/05/24 21:26
Gabapentin 300 Mg Capsule PO 04/02/24 21:59 600 mg
HS ANA Administration
Hydrochlorothiazide 25 mg 03/06/24 08:00 03/06/24 08:56
Hydrochlorothiazide 25 Mg Tablet PO 04/03/24 07:59 25 mg
DAILY ANA Administration
Lacosamide 200 mg 03/05/24 20:00 03/06/24 08:56
Lacosamide (Vimpat) 200 Mg Tablet PO 04/02/24 19:59 200 mg
BID ANA Administration
Lacosamide 100 mg 03/05/24 21:00 03/06/24 08:56
Lacosamide (Vimpat) 100 Mg Tablet PO 04/02/24 20:59 100 mg
BID ANA Administration
Levetiracetam 500 mg 03/05/24 20:00 03/06/24 08:57
Levetiracetam (100 Mg/Ml) 500 Mg/5 Ml Vial IV 04/02/24 19:59 500 mg
Q12 ANA Administration
Lisinopril 20 mg 03/06/24 08:00 03/06/24 08:56
Lisinopril 20 Mg Tablet PO 04/03/24 07:59 20 mg
DAILY ANA Administration
Lorazepam 2 mg 03/05/24 18:19
Lorazepam 2 Mg/Ml Vial IV 04/02/24 18:18
Q4HPRN PRN
breakthrough seizures
Lorazepam 1 mg 03/05/24 18:19
Lorazepam 2 Mg/Ml Vial IV 04/02/24 18:18
Q8HPRN PRN
anxiety
Ondansetron HCl 4 mg 03/05/24 19:54 03/06/24 09:15
Ondansetron 4 Mg/2 Ml Vial IV 04/02/24 19:53 4 mg
Q8HPRN PRN Administration
nausea and vomiting
Pantoprazole Sodium 40 mg 03/06/24 08:00 03/06/24 08:56
Pantoprazole 40 Mg Delayed Release Tablet PO 04/03/24 07:59 40 mg
DAILY ANA Administration
Polyethylene Glycol 17 grams 03/05/24 19:54
Polyethylene Glycol Powder 17 Grams Packet PO 04/02/24 19:53
DAILYPRN PRN
constipation
Rosuvastatin Calcium 20 mg 03/06/24 08:00 03/06/24 08:56
Rosuvastatin (Crestor) 20 Mg Tablet PO 04/03/24 07:59 20 mg
DAILY ANA Administration
Senna/Docusate Sodium 1 tablet 03/05/24 19:54
Docusate W/Senna (Leonela-Colace) Tablet PO 04/02/24 19:53
BIDPRN PRN
constipation
Simethicone 80 mg 03/06/24 03:09 03/06/24 03:18
Simethicone 80 Mg Chewable Tablet PO 04/03/24 03:08 80 mg
QIDPRN PRN Administration
gas pain
Sodium Chloride 0 flush 03/05/24 20:00
Sodium Chloride 0.9% (Flush) Syringe IV 04/02/24 19:59
PER PROTOCOL ANA
Sodium Chloride 1 ml 03/05/24 19:52
Nss (Pf) 10 Ml Vial For Ativan 2 Mg Dose IV 04/02/24 19:51
Q4HPRN PRN
IV LORAZEPAM DILUTION
Sodium Chloride 0.5 ml 03/05/24 19:53
Nss (Pf) 10 Ml Vial For Ativan 1 Mg Dose IV 04/02/24 19:52
Q8HPRN PRN
IV LORAZEPAM DILUTION
Home Medications
�Medication �Instructions �Recorded
alprazolam 1 mg tablet 1 mg PO TIDPRN PRN anxiety 03/05/24
cholecalciferol (vitamin D3) 25 25 mcg PO DAILY 03/05/24
mcg (1,000 unit) tablet (Vitamin
D3)
citalopram 40 mg tablet 40 mg PO DAILY 03/05/24
dextroamphetamine-amphetamine 10 10 mg PO TIDPRN PRN adhd 03/05/24
mg tablet (Adderall)
doxepin 25 mg capsule 25 mg PO HS 03/05/24
gabapentin 300 mg capsule 600 mg PO HS 03/05/24
lacosamide 200 mg tablet 200 mg PO BID 03/05/24
lacosamide 50 mg tablet 100 mg PO BID 03/05/24
lisinopril 20 1 tab PO DAILY 03/05/24
mg-hydrochlorothiazide 25 mg tablet
pantoprazole 40 mg tablet,delayed 40 mg PO DAILY 03/05/24
release
rosuvastatin 20 mg tablet 20 mg PO DAILY 03/05/24
tirzepatide (weight loss) 10 10 mg SC TU 03/05/24
mg/0.5 mL subcutaneous pen
injector (Zepbound)
Vital Signs and Labs
-
Vital Signs and Labs:
Vital Signs
Temp Pulse Resp BP Pulse Ox
36.7 C 65 18 180/90 96
03/06/24 11:10 03/06/24 11:10 03/06/24 11:10 03/06/24 11:10 03/06/24 11:10
Lab Results
03/06/24 11:12
03/06/24 07:59
Sodium 141 mmol/L (135-145) 03/06/24 07:59
Potassium 4.3 mmol/L (3.5-5.1) 03/06/24 07:59
BUN 17 mg/dl (9-20) 03/06/24 07:59
Glucose 101 mg/dl (70-99) H 03/06/24 07:59
Calcium 9.4 mg/dl (8.4-10.2) 03/06/24 07:59
Ur Buprenorphine Negative (Negative) 03/05/24 23:24
--- NOTE | 2024-03-06 14:44 | W.DCSUMMARY ---
Discharge Summary
Discharge Data
Date of Admission: 03/05/24
Date of Discharge: 03/06/24
-
Pending Results: No
Hospital Course
34yo M with anxiety, GERD, HTN, Hx of seizures, shoulder Fx, migraine, ADHD came after he sustained episode of retrograde amnesia on the day prior. He went for a walk with his neighbor friend and during walk he had a witnessed fall with presceding
slurred speech. He does not remember this episode and regained memory in his house later. Episode is similar to his previous seizure episodes. MRI brain WNL
Continued to have epigastric dyscomfort, most likely 2/2 recent GLP-1 agonist, since CT of abdomen without acute fidnings, Lipase WNL. Advised to restart with lowest dose. Zofran PRN. EEG neg for seizure activity. Medically stable for d/c
I have spent at least 38min discharging the patient
A/P
#Possible Focal seizures, atonic epilepsy with breakthrough seizures with postictal state
#Abdominal epigastric dyscomfort
#Minimal leukocytosis - resolved
#Cocaine abuse
#sinus tachycardia - resolved
#Cannabis use
#Anxiety
#GERD
#Essential HTN
#Neuropathy
#ADHD
#Splint in R hand - removed bedside
#R knee abrasions
Discharge Plan
-
Patient Disposition: Home (Routine Discharge)
Discharge Diagnosis/Procedures: Breakthrough seizures
Diet: Low Sodium
Activity: As tolerated
Driving Restrictions: No driving
Referrals:
Luciano Guillen DO [Family Provider] -
Prescriptions:
New
nifedipine 30 mg Tablet Extended Release
30 mg PO DAILY Qty: 30 0RF
levetiracetam [Keppra] 500 mg tablet
500 mg PO BID Qty: 60 0RF
ondansetron 4 mg tablet,disintegrating
4 mg PO Q8H PRN (Reason: nausea and vomiting) Qty: 10 0RF
Continued
citalopram 40 mg Tablet
40 mg PO DAILY
alprazolam 1 mg Tablet
1 mg PO TIDPRN PRN (Reason: anxiety)
Patient Comments:
03/05/24: last filled 03/03/24 for 90 tablets over 30 days.
doxepin 25 mg Capsule
25 mg PO HS
pantoprazole 40 mg Tablet,Delayed Release (Dr/Ec)
40 mg PO DAILY
gabapentin 300 mg Capsule
600 mg PO HS
lisinopril-hydrochlorothiazide 20-25 mg Tablet
1 tab PO DAILY
rosuvastatin 20 mg Tablet
20 mg PO DAILY
cholecalciferol (vitamin D3) [Vitamin D3] 25 mcg (1,000 unit) Tablet
25 mcg PO DAILY
lacosamide 50 mg Tablet
100 mg PO BID
Rx Instructions:
take with 200mg tab for total of 300mg
lacosamide 200 mg Tablet
200 mg PO BID
Rx Instructions:
take with 2x 50mg tabs for total of 300mg
Discontinued
dextroamphetamine-amphetamine [Adderall] 10 mg Tablet
10 mg PO TIDPRN PRN (Reason: adhd)
Patient Comments:
03/05/24: last filled 02/17/24 for 90 tablets over 30 days
Zepbound 10 mg/0.5 mL Pen Injector
10 mg SC TU
Discharge Orders:
Discharge Patient (As Directed); Ordered 03/06/24
Ordered By: Ramos Adams
Discharge Date and Time
Print Language: HEBREW
--- NOTE | 2024-03-06 15:03 | CM ---
Patient seen bedside, initial assessment completed by mother. Patient resides independently, will be discharging to mothers home. Patient is independent, no DME, VN, SNF. Patient PCP Luciano Guillen, pharmacy [facility], confirms prescription
coverage. Patient denies insecurities at home. CM will continue to follow for all discharge planning needs.
Plan; home with mom, no needs.
[2024-03-06] MEDS: PROCARDIA XL (EXTENDED RELEASE) 30 MG PO (15:09)
[2024-03-06] MEDS: AFLURIA (36 mos+) 2024-2025 FORMULA 0.5 ML IM (15:23)
[2024-03-06 15:24] VITALS: BP 144/84
--- NOTE | 2024-03-06 16:03 | PTCARENOTE ---
Reviewed discharge instructions with patient and Mother. Both verbalize understanding of teaching. IV and tele removed. Flu vaccine administered as ordered. Patient left via wheelchair with staff escort. Mother to transport patient home.
== END 2024-03-06 15:50 | disposition home or self-care (01) | DRG 101 ==
LOC: 4 EAST ACU 18:48
PROVIDERS: Emergency Medicine; ADMITTING PHYSICIAN Internal Medicine; CONSULT PHYSICIAN Psychiatry & Neurology Neurology; EMERGENCY PHYSICIAN Emergency Medicine; FAMILY PHYSICIAN Family Medicine
DX: G40.109 Localization-related (focal) (partial) symptomatic epilepsy and epileptic syndromes with simple partial seizures, not intractable, without status epilepticus (principal); F14.10 Cocaine abuse, uncomplicated; I10 Essential (primary) hypertension; G43.909 Migraine, unspecified, not intractable, without status migrainosus; F41.9 Anxiety disorder, unspecified; F51.3 Sleepwalking [somnambulism]; F90.9 Attention-deficit hyperactivity disorder, unspecified type; K21.9 Gastro-esophageal reflux disease without esophagitis; K31.84 Gastroparesis; T38.3X5A Adverse effect of insulin and oral hypoglycemic [antidiabetic] drugs, initial encounter; G62.9 Polyneuropathy, unspecified; W19.XXXA Unspecified fall, initial encounter; S80.211A Abrasion, right knee, initial encounter; R29.6 Repeated falls; Z91.81 History of falling; R41.2 Retrograde amnesia; R00.0 Tachycardia, unspecified; Z79.85 Long-term (current) use of injectable non-insulin antidiabetic drugs; Z79.899 Other long term (current) drug therapy; Z87.81 Personal history of (healed) traumatic fracture
CPT/HCPCS: 70450; 70553; 72125; 74177; 80053; 80306; 80307; 82550; 83690; 83735; 84443; 85025; 90686; 93005; 95816; 96374; 99285; A9575; G0008; Q9967

== ENCOUNTER 2024-08-17 10:54 | Emergency (ER) | payer BC, SELFPAY ==
[2024-08-17 10:59] VITALS: BP 144/100
--- NOTE | 2024-08-17 12:13 | ED.GENMED ---
History of Present Illness
<JC Drew - Last Filed: 08/17/24 16:14>
General
Chief Complaint: Abdominal Symptoms
Source: patient
Exam Limitations: none
Time Seen by Provider: 08/17/24 12:12
Nursing documentation reviewed up to this point in time: agreed with
History of Present Illness
History of Present Illness:
Patient is a 34-year-old male who presents to the ER for evaluation. Patient has had nausea and vomiting for the past 4 days. He reports he is not able to eat or even drink fluids.
Patient was on Zepbound however lost the medication. He restarted it 1 1/2 weeks ago. His last dose was 4 days ago. He complains along with nausea and vomiting of upper abdominal pain. He reports this pain is in the epigastric area but does not
feel like his reflux pain. He is on Protonix and that is not helping.
His family doctor was not sure if this was from this medication Zepbound.
In addition he complained of burning with urination that started last night. He does feel mildly constipated however has also not been eating . Incidentally patient has been weaning off of his Keppra and zonisamide was started for his chronic
seizures. He is still on Keppra and zonisamide currently.
He denies any fever chills
Past History
<JC Drew - Last Filed: 08/17/24 16:14>
Past History
ED Past Medical History: GERD, HTN, Seizures and Other (Anxiety/Lyme disease)
ED Past Surgical History: None and Orthopedic
Social History
Tobacco: Non-smoker
Alcohol: None
Review of Systems
<JC Drew - Last Filed: 08/17/24 16:14>
Review of Systems
Allergies reviewed?: Yes
All Other Systems: ROS reviewed and negative except as documented in HPI and ROS
Constitutional: Reports no symptoms; Denies fever, fatigue or chills
EENT: Reports no symptoms
Respiratory: Reports no symptoms
Cardiac: Reports no symptoms
ABD/GI: Reports abdominal pain, nausea, vomiting and constipated
: Reports dysuria and frequency
Musculoskeletal: Reports no symptoms
Skin: Reports no symptoms
Neurological: Reports no symptoms
Psychiatric: Reports no symptoms
Phy Exam
<JC Drew - Last Filed: 08/17/24 16:14>
General Physical Exam
General Presentation: no apparent distress
General age: appears stated age
General Skin: warm and dry
General Habitus: normal
General Mental: alert
General Hydration: appears well hydrated
Gastrointestinal Exam
Gastrointestinal Exam: soft and other (mild epigastric pain )
Neurological Exam
Neurological Exam: alert and oriented x3
Musculoskeletal Exam
Musculoskeletal Exam: full ROM
Skin Exam
Skin Exam: normal color and warm/dry
Psychiatric Exam
Psychiatric Exam: normal mood/affect
Course
<JC Drew - Last Filed: 08/17/24 16:14>
Orders/Labs/Results
Orders:
Orders
08/17/24 12:37
IV Insert/Care/Rem.- Treatment PRN
0.9% Sodium Chloride 1000 ml [Nss] 1,000 ml IV BOLUS
Ondansetron Injectable [Zofran] 4 mg IV NOW STA
US Abdomen Complete/Upper Urgent
Comment:
Reason For Exam: upper abd pain
08/17/24 12:38
Electrocardiogram (*1) Stat
Reason for Study: Other
Other Reason for Exam: chest pain
EKG- Treatment ONCE
Ketorolac [Toradol] 15 mg IV NOW STA
08/17/24 12:39
Famotidine [Pepcid] 20 mg IV NOW STA
08/17/24 13:13
Complete Blood Count/With Diff Urgent
Comprehensive Metabolic Panel Urgent
Lipase Urgent
Urinalysis Reflex To Culture Urgent
Date Specimen was Collected: 08/17/24
Time Specimen was Collected: 13:08
Urine Microscopic Reflex Cult Urgent
Urine Culture Urgent
ARSENIO Source: U
Specimen Description:
Date Specimen was Collected: 08/17/24
Time Specimen was Collected: 13:08
08/17/24 15:18
Ondansetron Injectable [Zofran] 4 mg IV NOW STA
08/17/24 15:27
Ondansetron Injectable [Zofran] 4 mg IV NOW STA
Abnormal Lab Results
08/17/24
13:13
WBC 14.6 H 10^3/uL
(4.8-10.8)
Plt Count 409 H 10^3/uL
(130-400)
Abs Immat Gran (auto) 0.1 H 10^3/uL
(0-0.05)
Absolute Neuts (auto) 12.2 H 10^3/uL
(1.4-6.5)
Absolute Lymphs (auto) 1.1 L 10^3/uL
(1.2-3.4)
Absolute Monos (auto) 1.1 H 10^3/uL
(0.1-0.6)
Neutrophils % 83.6 H %
(42.2-75.2)
Lymphocytes % 7.8 L %
(20.5-51.1)
Chloride 97 L mmol/L
(98-107)
BUN 21 H mg/dl
(9-20)
Glucose 105 H mg/dl
(70-99)
Calcium 10.4 H mg/dl
(8.4-10.2)
Alkaline Phosphatase 160 H U/L
(38-126)
Total Protein 8.6 H g/dl
(6.3-8.2)
Albumin 5.3 H g/dl
(3.5-5.0)
Urine Ketones 1+ A
(Negative)
Urine Nitrite (Reflex) Positive A
(Negative)
Urine Bilirubin 3+ A
(Negative)
Urine Urobilinogen 4+ A
(Neg - 1+)
Urine RBC 3-6 A /HPF
(0-2)
Urine Bacteria (Reflex) Many A
(Negative)
Urine Albumin (Reflex) 3+ A
(Neg - Trace)
08/17/24 13:13
08/17/24 13:13
Vital Signs
Initial and Last Documented VS:
Initial Vital Signs
Temp Pulse Resp BP Pulse Ox
98.3 F 89 18 144/100 98
08/17/24 10:59 08/17/24 10:59 08/17/24 10:59 08/17/24 10:59 08/17/24 10:59
Last Documented Vital Signs
Temp Pulse Resp BP Pulse Ox
98.3 F 78 18 135/64 97
08/17/24 10:59 08/17/24 15:19 08/17/24 15:19 08/17/24 15:19 08/17/24 15:19
Water Fabricator Operator consulted with Physician
Water Fabricator Operator consulted with physician?: Yes
Name of Physician Consulted: cash
<Blanca Clinton MD - Last Filed: 08/17/24 15:49>
Orders/Labs/Results
Orders:
Orders
08/17/24 12:37
IV Insert/Care/Rem.- Treatment PRN
0.9% Sodium Chloride 1000 ml [Nss] 1,000 ml IV BOLUS
Ondansetron Injectable [Zofran] 4 mg IV NOW STA
US Abdomen Complete/Upper Urgent
Comment:
Reason For Exam: upper abd pain
08/17/24 12:38
Electrocardiogram (*1) Stat
Reason for Study: Other
Other Reason for Exam: chest pain
EKG- Treatment ONCE
Ketorolac [Toradol] 15 mg IV NOW STA
08/17/24 12:39
Famotidine [Pepcid] 20 mg IV NOW STA
08/17/24 13:13
Complete Blood Count/With Diff Urgent
Comprehensive Metabolic Panel Urgent
Lipase Urgent
Urinalysis Reflex To Culture Urgent
Date Specimen was Collected: 08/17/24
Time Specimen was Collected: 13:08
Urine Microscopic Reflex Cult Urgent
Urine Culture Urgent
ARSENIO Source: U
Specimen Description:
Date Specimen was Collected: 08/17/24
Time Specimen was Collected: 13:08
08/17/24 15:18
Ondansetron Injectable [Zofran] 4 mg IV NOW STA
08/17/24 15:27
Ondansetron Injectable [Zofran] 4 mg IV NOW STA
Abnormal Lab Results
08/17/24
13:13
WBC 14.6 H 10^3/uL
(4.8-10.8)
Plt Count 409 H 10^3/uL
(130-400)
Abs Immat Gran (auto) 0.1 H 10^3/uL
(0-0.05)
Absolute Neuts (auto) 12.2 H 10^3/uL
(1.4-6.5)
Absolute Lymphs (auto) 1.1 L 10^3/uL
(1.2-3.4)
Absolute Monos (auto) 1.1 H 10^3/uL
(0.1-0.6)
Neutrophils % 83.6 H %
(42.2-75.2)
Lymphocytes % 7.8 L %
(20.5-51.1)
Chloride 97 L mmol/L
(98-107)
BUN 21 H mg/dl
(9-20)
Glucose 105 H mg/dl
(70-99)
Calcium 10.4 H mg/dl
(8.4-10.2)
Alkaline Phosphatase 160 H U/L
(38-126)
Total Protein 8.6 H g/dl
(6.3-8.2)
Albumin 5.3 H g/dl
(3.5-5.0)
Urine Ketones 1+ A
(Negative)
Urine Nitrite (Reflex) Positive A
(Negative)
Urine Bilirubin 3+ A
(Negative)
Urine Urobilinogen 4+ A
(Neg - 1+)
Urine RBC 3-6 A /HPF
(0-2)
Urine Bacteria (Reflex) Many A
(Negative)
Urine Albumin (Reflex) 3+ A
(Neg - Trace)
08/17/24 13:13
08/17/24 13:13
Vital Signs
Initial and Last Documented VS:
Initial Vital Signs
Temp Pulse Resp BP Pulse Ox
98.3 F 89 18 144/100 98
08/17/24 10:59 08/17/24 10:59 08/17/24 10:59 08/17/24 10:59 08/17/24 10:59
Last Documented Vital Signs
Temp Pulse Resp BP Pulse Ox
98.3 F 78 18 135/64 97
08/17/24 10:59 08/17/24 15:19 08/17/24 15:19 08/17/24 15:19 08/17/24 15:19
<JC Drew - Last Filed: 08/17/24 16:14>
MDM/Problems Addressed
MDM/Problems Addressed:
As documented patient is a 34-year-old male who presented nausea and vomiting for the past several days. He was off of his Zepbound for over a month and a half and then started it 1-1/2 weeks ago and again had it 4 days ago. He has had several
days of nausea and vomiting epigastric pain. He also complained of mild dysuria. He presents awake alert he feels nauseous but he is nontachycardic afebrile. White count mildly elevated likely viral versus reactive. His hemoglobin is stable.
Abdomen soft minimally point tender in the epigastric area. His lipase is normal his ultrasound is unremarkable
Patient was given fluids Toradol Pepcid and nausea medicine. He still complains of some nausea however is stable for discharge home. It is likely that this is related to Zepbound , not concering for obstruction. he is recommended to stop this
medication till cleared by his family doctor and close eval by family doctor.
Regarding urinary symptoms patient has only 3-5 white blood cells will send for culture but not treat at this time for UTI.
Patient was eval by ED physician who agrees with assessment and plan
Chronic conditions affecting care:
Seizures on Zepbound for weight loss, hypertension hyperlipidemia
<JC Drew - Last Filed: 08/17/24 16:14>
*Radiology
Radiology exam reviewed: radiology read reviewed
*Pulse Oximetry
Patient hypoxic: no
*Critical Care Note
Total Time (30-74mins, 75-104mins- exclusive of procedures): Not Applicable
ED Attending Note
<JC Drew - Last Filed: 08/17/24 16:14>
-
Portions of this chart may have been created with voice recognition software.� Occasional wrong word or��sound alike� substitutions may have occurred due to the inherent limitations of voice recognition software.
<Blanca Clinton MD - Last Filed: 08/17/24 15:49>
ED Attending Note
Patient seen and examined by attending physician: Yes
I performed the substantive portion of visit, reviewed & personally made and approve the management plan that is documented in note by myself or DEBORAH.: Yes
ED Attending Note:
34-year-old male taking a GLP-1 agonist, there was a gap of approximately a month where he was not taking it. He notes abdominal pain, nausea and a small amount of nonbloody vomiting. He is also had some recent medication changes regarding his
seizure disorder. Patient with a variety of other symptoms including dysuria and frequency. He denies fever, chills, back pain, chest pain, dyspnea, lower abdominal pain. He noted blood on the toilet paper when wiping after a bowel movement
yesterday. No blood otherwise. He is straining to have bowel movements. On exam, patient is anxious but pleasant, mother at bedside. Abdomen is soft and nontender to palpation, no rebound or guarding. Workup reviewed highly suspect symptoms
related to Zepbound. Advised patient to avoid nonsteroidals, continue his PPI, close follow-up with his doctor.
Discharge Plan
Departure
Patient Disposition: Home (Routine Discharge)
Date of Disposition: 08/17/24
Time of Disposition: 16:06
Patient with high blood pressure during this ER visit?: Yes
Condition: Fair
Covid-19: Not Applicable
Discharge Problem:
Nausea & vomiting
Instructions: Nausea and Vomiting, Adult (DC), BLOOD PRESSURE
Prescriptions:
New
ondansetron 4 mg tablet,disintegrating
4 mg PO Q8H PRN (Reason: nausea and vomiting) Qty: 12 0RF
No Action
citalopram 40 mg Tablet
40 mg PO DAILY
alprazolam 1 mg Tablet
1 mg PO TIDPRN PRN (Reason: anxiety)
Patient Comments:
03/05/24: last filled 03/03/24 for 90 tablets over 30 days.
doxepin 25 mg Capsule
25 mg PO HS
pantoprazole 40 mg Tablet,Delayed Release (Dr/Ec)
40 mg PO DAILY
gabapentin 300 mg Capsule
600 mg PO HS
lisinopril-hydrochlorothiazide 20-25 mg Tablet
1 tab PO DAILY
rosuvastatin 20 mg Tablet
20 mg PO DAILY
cholecalciferol (vitamin D3) [Vitamin D3] 25 mcg (1,000 unit) Tablet
25 mcg PO DAILY
lacosamide 50 mg Tablet
100 mg PO BID
Rx Instructions:
take with 200mg tab for total of 300mg
lacosamide 200 mg Tablet
200 mg PO BID
Rx Instructions:
take with 2x 50mg tabs for total of 300mg
nifedipine 30 mg Tablet Extended Release
30 mg PO DAILY Qty: 30 0RF
levetiracetam [Keppra] 500 mg tablet
500 mg PO BID Qty: 60 0RF
ondansetron 4 mg tablet,disintegrating
4 mg PO Q8H PRN (Reason: nausea and vomiting) Qty: 10 0RF
Referrals:
Lucinao Guillen DO [Family Provider] -
Activity Restrictions/Additional Instructions:
As discussed a prescription for nausea medicine was sent to your pharmacy take as directed.
Stop Zepbound until seen and evaluated by your family doctor.
Clear fluids for the next 24 hours followed by bland solid foods.
Return if any worsening of symptoms
Interventions
Interventions:
*Risk Screen - Suicide Last Done: 08/17/24 10:59
*General Assessment Last Done: 08/17/24 10:59
*Neglect/Abuse Screening Last Done: 08/17/24 10:59
*ED COVID-19 Vaccine History Last Done: 08/17/24 13:29
EG-Rvpavz-Mfhidoowpw Assessment Last Done: 08/17/24 13:29
Discharge Date and Time
Print Language: EQUATORIAL GUINEAN
[2024-08-17 13:03] VITALS: BMI 29.4
[2024-08-17] MEDS: TORADOL 15 MG IV (13:18)
[2024-08-17] MEDS: ZOFRAN 4 MG IV ×2 (13:18→15:26)
[2024-08-17] MEDS: NSS 1000 IV (13:18)
[2024-08-17] MEDS: PEPCID 20 MG IV (13:18)
[2024-08-17 13:41] LABS: % Basophils 0.3 % (0-2); % Eosinophils 0.1 % (0-6); % Immature Granulocytes 0.5 % (0-0.5); % Lymphocytes 7.8 % (20.5-51.1); % Monocytes 7.7 % (1.7-9.3); % Neutrophils 83.6 % (42.2-75.2); Absolute Immature Granulocytes 0.1 10^3/uL (0-0.05); Absolute Lymphocytes 1.1 10^3/uL (1.2-3.4); Absolute Monocytes 1.1 10^3/uL (0.1-0.6); Absolute Neutrophils 12.2 10^3/uL (1.4-6.5); Hemoglobin 17.5 g/dL (13.0-18.0); Mean Corpuscular Volume 88.5 fL (80.0-94.0); Mean Platelet Volume 9.3 fL (7.4-10.4); Nucleated Red Blood Cells % 0 % (-); Platelet Count 409 10^3/uL (130-400); Red Blood Cell Count 5.65 10^6/uL (4.70-6.10); Red Cell Dist. Width 12.5 % (11.5-14.5); White Blood Cell Count 14.6 10^3/uL (4.8-10.8)
[2024-08-17 13:46] LABS: Urine Albumin 3+ (Neg - Trace); Urine Bilirubin 3+ (Negative); Urine Glucose Negative (Negative); Urine Ketone 1+ (Negative); Urine Leukocyte Negative (Negative); Urine Nitrite Positive (Negative); Urine Occult Blood Negative (Negative); Urine Urobilinogen 4+ (Neg - 1+)
[2024-08-17 13:47] LABS: Urine Character Clear (Clear); Urine Color Orange
[2024-08-17 14:01] LABS: ALT (SGPT) 44 U/L (0-50); AST (SGOT) 24 U/L (17-59); Albumin 5.3 g/dl (3.5-5.0); Alkaline Phosphatase 160 U/L (38-126); Blood Urea Nitrogen 21 mg/dl (9-20); Calcium 10.4 mg/dl (8.4-10.2); Carbon Dioxide 28 mmol/L (22-30); Chloride 97 mmol/L (98-107); Estimated Creatinine Clearance > 125 ml/min; Glucose 105 mg/dl (70-99); Lipase 94 U/L (23-300); Potassium 3.9 mmol/L (3.5-5.1); Sodium 140 mmol/L (135-145); Total Bilirubin 0.8 mg/dl (0.2-1.3); Total Protein 8.6 g/dl (6.3-8.2); eGFR > 60.00
[2024-08-17 14:36] LABS: Urine Amorphous Seen
[2024-08-17 14:44] LABS: Urine Bacteria Many (Negative)
[2024-08-17 15:19] VITALS: BP 135/64
== END 2024-08-17 16:23 | disposition home or self-care (01) ==
LOC: EMR 10:54
PROVIDERS: Nurse Practitioner; EMERGENCY PHYSICIAN Emergency Medicine; FAMILY PHYSICIAN Family Medicine
DX: R11.2 Nausea with vomiting, unspecified (principal); R10.13 Epigastric pain; R30.0 Dysuria; I10 Essential (primary) hypertension; K21.9 Gastro-esophageal reflux disease without esophagitis; G40.909 Epilepsy, unspecified, not intractable, without status epilepticus; Z79.899 Other long term (current) drug therapy; E78.5 Hyperlipidemia, unspecified
CPT/HCPCS: 96374; 96375; 96376; 96361; 99284; 76700; 80053; 81003; 81015; 83690; 85025; 87086; 93005